=== PATIENT | female | born 1945 | race Caucasian/White ===

== ENCOUNTER 2018-03-25 07:40 | Emergency (ER) | payer MEDICARE ==
[~2018-03-25] VITALS: Ht 165.1 cm; Wt 72.6 kg
--- NOTE | ~2018-03-25 | EKG ---
[facility] [address] [facility] [place], [place] [address] Draft EK completed, results pending confirmation PATIENT NAME: SMILEY ASHFORD STILL Electrocardiogram DATE OF : 41 PHYSICIAN: PRELIMINARY REPORT #: [id number] REPORT IS CONFIDENTIAL AND NOT TO BE RELEASED WITHOUT AUTHORIZATION
[2018-03-25] MEDS ORDERED: MACROBID 100 M100 MG PO (10:43)
[2018-03-25] MEDS ORDERED: POTASSIUM CHLO20 ME1 PO (10:43)
[2018-03-25] MEDS ORDERED: FUROSEMIDE40 MG PO (10:43)
[2018-03-25] MEDS ORDERED: METOPROLOL SUCC25 MG PO (11:07)
[2018-03-25] MEDS ORDERED: ZESTRIL5 MG PO (11:08)
[2018-03-25] MEDS ORDERED: CHILDREN'S ASPI81 M1 PO (11:08)
--- NOTE | 2018-03-25 19:49 | EKG ---
[facility] [address] [facility] [place] [address] Signed Sinus tachycardia Nonspecific T wave abnormality Abnormal ECG No previous ECGs available Confirmed by DOREEN DAILEY MD ([id number] on 03/25/2018 7:49:35 PM Electronically Signed By: DOREEN DAILEY MD 03/25/18 1949 PATIENT NAME: SMILEY ASHFORD Electrocardiogram DATE OF : 41 PHYSICIAN: DOREEN DAILEY MD REPORT #: [id number] REPORT IS CONFIDENTIAL AND NOT TO BE RELEASED WITHOUT AUTHORIZATION
== END 2018-03-25 15:04 | disposition home or self-care (01) ==
LOC: ED 07:40
DX: I11.0 Hypertensive heart disease with heart failure (principal); I50.9 Heart failure, unspecified; E87.2 Acidosis; R82.71 Bacteriuria; R09.02 Hypoxemia; J44.9 Chronic obstructive pulmonary disease, unspecified; Z87.891 Personal history of nicotine dependence; Z79.899 Other long term (current) drug therapy; Z79.82 Long term (current) use of aspirin
CPT/HCPCS: 71045; 71260; 80053; 81001; 82803; 83605; 83880; 84484; 85025; 85379; 85610; 85730; 87040; 93005; 93010; 94640; 94660; 96374; 96375; 99291; J2930; Q9967